=== PATIENT | male | born 1965 | race Caucasian/White ===

== ENCOUNTER 2017-09-24 13:21 | Emergency (ER) | payer OTHER ==
[2017-09-24] MEDS: HYDROCODONE/APAP (5/325) TAB PO (14:57)
== END 2017-09-24 16:15 | disposition home or self-care (01) ==
LOC: FTE 13:21
DX: M43.16 Spondylolisthesis, lumbar region (principal); M46.96 Unspecified inflammatory spondylopathy, lumbar region; I10 Essential (primary) hypertension; Z79.84 Long term (current) use of oral hypoglycemic drugs
CPT/HCPCS: 72100; 99283-25

== ENCOUNTER 2017-10-08 10:11 | Emergency (ER) | payer MEDICARE, OTHER ==
[2017-10-08] MEDS: predniSONE 20 MG TAB PO (12:00)
[2017-10-08] MEDS: KETOROLAC 30 MG INJ IM (12:00)
[2017-10-08 12:27] LABS: ADD UMIC NO; UR ASCORBIC ACID 40 mg/dL (NEGATIVE); UR BILIRUBIN (Dip) NEGATIVE (NEGATIVE); UR BLOOD (Dip) NEGATIVE (NEGATIVE); UR CLARITY CLEAR (CLEAR); UR COLOR YELLOW (YELLOW); UR GLUCOSE (Dip) NEGATIVE (NEGATIVE); UR KETONES (Dip) NEGATIVE (NEGATIVE); UR LEUKOCYTE ESTERASE (Dip) NEGATIVE Leu/ul (NEGATIVE); UR NITRITE (Dip) NEGATIVE (NEGATIVE); UR SPECIFIC GRAVITY (Dip) 1.019 (1.003-1.030); UR TOTAL PROTEIN (Dip) NEGATIVE (NEGATIVE); UR UROBILINOGEN (Dip) NEGATIVE (NEGATIVE)
== END 2017-10-08 13:23 | disposition home or self-care (01) ==
LOC: FTE 10:11
DX: M54.42 Lumbago with sciatica, left side (principal); I10 Essential (primary) hypertension; E11.9 Type 2 diabetes mellitus without complications; Z79.84 Long term (current) use of oral hypoglycemic drugs
CPT/HCPCS: 72131; 81003; 96372; 99285-25

== ENCOUNTER 2018-09-19 07:27 | Emergency (ER) | payer MEDICARE ==
[2018-09-19] MEDS: IBUPROFEN 800 MG TAB PO (08:04)
== END 2018-09-19 09:47 | disposition home or self-care (01) ==
LOC: FTE 07:27
DX: M54.41 Lumbago with sciatica, right side (principal); E11.9 Type 2 diabetes mellitus without complications; I10 Essential (primary) hypertension; M54.42 Lumbago with sciatica, left side; Z79.84 Long term (current) use of oral hypoglycemic drugs
CPT/HCPCS: 72100; 99283-25